=== PATIENT | female | born 1955 | race American Indian/Alaskan Native ===

== ENCOUNTER 2016-10-20 17:11 | Emergency (ER) | payer SELFPAY ==
[2016-10-20] MEDS ORDERED: NORCO 5/325 PO ONE (18:38)
--- NOTE | 2016-10-20 19:21 | Emergency Department Report ---
Entered by JERALD DEAL, acting as scribe for LUIS MONREAL NP. ED Lower Extremity HPI - General Chief Complaint: Extremity Injury, Lower Stated Complaint: FALL,SWOLLEN FOOT Time Seen by Provider: 10/20/16 18:35 Source: patient Mode of arrival: Wheelchair Limitations: No Limitations - History of Present Illness Initial Comments: 61 y/o female presents to the ED c/o pain to right foot status post fall. Associated symptoms include swelling but she denies numbness, tingling, LOC, head trauma, fever, chills, nausea and vomiting. Patient states she fell off chair and injured right foot. No alleviating or aggravating factors. Allergic to rofecoxib. MD Complaint: foot injury -: days(s) Injury: Foot: Right Type of Injury: blunt, other (fall) Place: home Severity: moderate Severity scale (0 -10): 5 Improves With: nothing Worsens With: nothing, weight bearing, movement, palpation Context: fall Associated Symptoms: swelling, able to partially bear weight. denies: numbness , tingling, other (no fever, chills, nausea, vomiting, LOC, head trauma) - Related Data Previous Rx's Medication Instructions Recorded Last Taken Type Acetaminophen [Acetaminophen TAB] 1,000 mg PO Q6HR PRN #60 tablet 10/20/16 Unknown Rx Cyclobenzaprine [Flexeril] 10 mg PO TID PRN #30 tablet 10/20/16 Unknown Rx traMADol [Ultram] 50 mg PO Q8HR PRN #15 tablet 10/20/16 Unknown Rx Allergies Allergy/AdvReac Type Severity Reaction Status Date / Time rofecoxib [From Vioxx] Allergy Hives Verified 10/20/16 17:16 ED Review of Systems Comment: All other systems reviewed and negative Constitutional: denies: chills, fever Eyes: denies: eye pain, eye discharge, vision change ENT: denies: ear pain, throat pain Respiratory: denies: cough, shortness of breath, wheezing Cardiovascular: denies: chest pain, palpitations Endocrine: no symptoms reported Gastrointestinal: denies: nausea, vomiting Genitourinary: denies: urgency, dysuria, discharge Musculoskeletal: joint swelling, myalgia, other (right foot pain) Skin: denies: rash, lesions Neurological: denies: numbness, other (tingling, LOC, head trauma) Psychiatric: denies: anxiety, depression Hematological/Lymphatic: denies: easy bleeding, easy bruising ED Past Medical Hx - Past Medical History Previous Medical History?: Yes Hx Hypertension: Yes - Surgical History Past Surgical History?: Yes - Social History Smoking Status: Never Smoker Substance Use Type: None - Medications Home Medications: Home Medications Medication Instructions Recorded Confirmed Last Taken Type Acetaminophen [Acetaminophen TAB] 1,000 mg PO Q6HR PRN #60 tablet 10/20/16 Unknown Rx Cyclobenzaprine [Flexeril] 10 mg PO TID PRN #30 tablet 10/20/16 Unknown Rx traMADol [Ultram] 50 mg PO Q8HR PRN #15 tablet 10/20/16 Unknown Rx ED Physical Exam - General Limitations: No Limitations General appearance: alert, in no apparent distress - Head Head exam: Present: atraumatic, normocephalic, normal inspection - Eye Eye exam: Present: normal appearance, PERRL, EOMI. Absent: scleral icterus, conjunctival injection, nystagmus, periorbital swelling, periorbital tenderness Pupils: Present: normal accommodation - ENT ENT exam: Present: normal exam, normal orophraynx, mucous membranes moist, TM's normal bilaterally, normal external ear exam - Neck Neck exam: Present: normal inspection, full ROM. Absent: tenderness, meningismus, lymphadenopathy, thyromegaly - Respiratory Respiratory exam: Present: normal lung sounds bilaterally. Absent: respiratory distress, wheezes, rales, rhonchi, stridor, chest wall tenderness, accessory muscle use, decreased breath sounds, prolonged expiratory - Cardiovascular Cardiovascular Exam: Present: regular rate, normal rhythm, normal heart sounds. Absent: bradycardia, tachycardia, irregular rhythm, systolic murmur, diastolic murmur, rubs, gallop - GI/Abdominal GI/Abdominal exam: Present: soft, normal bowel sounds. Absent: distended, tenderness, guarding, rebound, rigid, diminished bowel sounds - Rectal Rectal exam: Present: deferred - Extremities Exam Extremities exam: Present: normal inspection, full ROM, normal capillary refill. Absent: tenderness, pedal edema, joint swelling, calf tenderness - Expanded Lower Extremity Exam Right Hip exam: Present: normal inspection, full ROM. Absent: tenderness, swelling, abrasion, laceration, ecchymosis, deformity, crepidus, dislocation, erythema, external rotation, internal rotation, shortening, pelvic stability Upper Leg exam: Present: normal inspection, full ROM. Absent: tenderness, abrasion, laceration, ecchymosis, deformity, crepidus, dislocation, erythema Knee exam: Present: normal inspection, full ROM, full knee extension. Absent: tenderness, swelling, abrasion, laceration, ecchymosis, deformity, crepidus, dislocation, erythema, effusion, pain w/ pronation/supination, posterior draw sign, pain/laxity with valgus, pain/laxity with varus Lower Leg exam: Present: normal inspection, full ROM. Absent: tenderness, swelling, abrasion, laceration, ecchymosis, deformity, crepidus, dislocation, erythema, palpable cord, Marcelo's sign Ankle exam: Present: normal inspection, full ROM. Absent: tenderness, swelling , abrasion, laceration, ecchymosis, deformity, crepidus, dislocation, erythema, anterior draw sign Foot/Toe exam: Present: swelling (right lateral dorsum foot at, abrasion ecchymosis ), abrasion, ecchymosis. Absent: tenderness, laceration, deformity, crepidus, dislocation, erythema, amputation, puncture wound, foreign body, calcaneal tenderness, tenderness at base of 5th metatarsal, nail avulsion, subungual hematoma Neuro vascular tendon exam: Present: no vascular compromise Gait: Positive: observed and normal - Back Exam Back exam: Present: normal inspection, full ROM. Absent: tenderness, CVA tenderness (R), CVA tenderness (L), muscle spasm, paraspinal tenderness, vertebral tenderness, rash noted - Neurological Exam Neurological exam: Present: alert, oriented X3 - Psychiatric Psychiatric exam: Present: normal affect, normal mood - Skin Skin exam: Present: warm, dry, intact, normal color. Absent: rash ED Course Vital Signs 10/20/16 17:13 Temperature 98.2 F Pulse Rate 74 Respiratory 24 Rate Blood Pressure 190/98 O2 Sat by Pulse 98 Oximetry ED Lower Extremity MDM - Radiology Data Radiology results: image reviewed interpreted by me: no fracture - Medical Decision Making pt is a 61 y/o aaf s/p fall today pt advises fall from chair nad hitting right foot against chair, now with pain and swelling , xray no fracture , exam: ecchymosis, mild swelling no deformity , rom restricted by pain , pt advises inability to bear weight maribell limp , will tx with js wrap, ortho shoe, and crutches, plan, ultram, tylenol, rice therapy pt will follow up with ortho Dr. Campuzano upon appointment, pt verbalized agreement and understanding with same, pt demonstrated safe use and technique with crutches to home via pov and family member. pt is a/o x 3 with nad at this time, ED Disposition Clinical Impression: Contusion of foot, right Qualifiers: Encounter type: initial encounter Qualified Code(s): S90.31XA - Contusion of right foot, initial encounter Sprain of foot, right Qualifiers: Encounter type: initial encounter Qualified Code(s): S93.601A - Unspecified sprain of right foot, initial encounter Disposition: TO HOME OR SELFCARE Is pt being admited?: No Does the pt Need Aspirin: No Condition: Good Instructions: Foot Contusion (ED), Foot Sprain (ED) Prescriptions: Acetaminophen [Acetaminophen TAB] 1,000 mg PO Q6HR PRN #60 tablet PRN Reason: Pain Cyclobenzaprine [Flexeril] 10 mg PO TID PRN #30 tablet PRN Reason: Muscle Spasm traMADol [Ultram] 50 mg PO Q8HR PRN #15 tablet PRN Reason: severe Pain Referrals: PRIMARY CARE,MD [Primary Care Provider] - 3-5 Days RYAN CAMPUZANO MD [Staff Physician] - 3-5 Days Time of Disposition: 19:20 This documentation as recorded by the SAY louie ELIZABETH,accurately reflects the service I personally performed and the decisions made by , LUIS MONREAL NP.
[2016-10-20 19:50] VITALS: BP 144/72
--- NOTE | 2016-10-21 07:26 | XRay Report ---
Right foot 2 views: History: Trauma pain swelling. Findings: No oblique radiographs are available for review. In AP and lateral projection no bony or articular abnormality noted. No fracture or dislocation. Impression: No evidence of acute fracture.
== END 2016-10-20 19:49 | disposition home or self-care (01) ==
LOC: ED 17:11
DX: S90.31XA Contusion of right foot, initial encounter (principal); I10 Essential (primary) hypertension; Z88.8 Allergy status to other drugs, medicaments and biological substances; W07.XXXA Fall from chair, initial encounter; Y93.89 Activity, other specified; Y92.89 Other specified places as the place of occurrence of the external cause; Y99.8 Other external cause status
CPT/HCPCS: 99283